=== PATIENT | female | born 1980 | race Caucasian/White ===

== ENCOUNTER 2017-11-01 10:26 | Emergency (ER) | payer OTHER ==
[2017-11-01 10:49] VITALS: BP 139/71; PULSE 86; TEMP 98.3; BMI 56.7
--- NOTE | 2017-11-01 12:12 | PDOC ---
History of Present Illness - General Chief Complaint: Pain, Acute Stated Complaint: NECK PAIN Time Seen by Provider: 11/01/17 11:56 - History of Present Illness Initial Comments: 37-year-old female without any medical comorbidities presents for evaluation of atraumatic right-sided neck pain 1 week. She describes her pain is achy and sharp at times exacerbated with motion and relieved with rest with radiation into her right shoulder. Denies any chance of . 11/01/17 12:08 Past History - Past Medical History Allergies/Adverse Reactions: Allergies Allergy/AdvReac Type Severity Reaction Status Date / Time No Known Allergies Allergy Verified 11/01/17 10:44 Home Medications: Ambulatory Orders Cyclobenzaprine HCl [Flexeril 10 mg] 10 mg PO HS PRN #10 tablet 11/01/17 Metformin HCl 500 mg PO BID 11/01/17 Vit 93/Iron Fum/Folic [ Formula Tablet] 1 each PO DAILY Anemia: No Asthma: No Cancer: No Cardiac Disorders: No COPD: No Diabetes: No HTN: No Hypercholesterolemia: Yes (diet controlled) Seizures: No Thyroid Disease: No - Suicide/Smoking/Psychosocial Hx Smoking Status: No Smoking History: Never smoked Have you smoked in the past 12 months: No Number of Cigarettes Smoked Daily: 0 Information on smoking cessation initiated: No Hx Alcohol Use: No Drug/Substance Use Hx: No Substance Use Type: None Hx Substance Use Treatment: No Review of Systems - Review of Systems Constitutional: No: Chills, Fever Musculoskeletal: Yes: Neck Pain All Other Systems: Reviewed and Negative *Physical Exam - Vital Signs Last Vital Signs Temp Pulse Resp BP Pulse Ox 98.3 F 86 18 139/71 100 11/01/17 10:46 11/01/17 10:46 11/01/17 10:46 11/01/17 10:46 11/01/17 10:46 - Physical Exam Comments: GENERAL: The patient is awake, alert, and fully oriented, in no acute distress. HEAD: Normal with no signs of trauma. ENT: Ears normal, nares patent, oropharynx clear without exudates. Moist mucous membranes. NECK: Skin color and temperature are normal. She has tenderness at the right sternocleidomastoid. There is no adenopathy. Mildly decreased range of motion with pain about the right sternocleidomastoid she has no gross sensorimotor deficits in bilateral upper extremities she has 5 out of 5 strength. Mildly positive Spurling maneuver on the right. Negative on the left. PSYCH: Normal mood, normal affect. SKIN: Warm, Dry, normal turgor, no rashes or lesions noted. 11/01/17 12:09 Medical Decision Making - Medical Decision Making His is most likely a cervical strain. In addition to the home mode Motrin she is taking I will give her Flexeril. Have her follow-up with her primary care doctor. 11/01/17 12:10 *DC/Admit/Observation/Transfer Diagnosis at time of Disposition: Cervical strain - Discharge Dispostion Disposition: HOME Condition at time of disposition: Stable Decision to Admit order: No - Referrals Referrals: Bridger Cronin MD [Primary Care Provider] - Celso Momin MD [Staff Physician] - - Patient Instructions Printed Discharge Instructions: DI for Cervical Muscle Strain Additional Instructions: This is most likely a cervical strain. In addition to the home Motrin you're taking her prescribed few Flexeril which is a muscle relaxer. It's one tablet before bedtime. In addition to primary care doctor should follow up with orthopedic surgery I recommended a spine surgeon in the area. Return to the emergency room if your symptoms worsen or go unresolved prior to follow-up. - Post Discharge Activity
== END 2017-11-01 12:26 | disposition home or self-care (01) ==
LOC: JERFT 10:26
DX: S16.1XXA Strain of muscle, fascia and tendon at neck level, initial encounter (principal); X58.XXXA Exposure to other specified factors, initial encounter; Y93.89 Activity, other specified; Y92.89 Other specified places as the place of occurrence of the external cause; Y99.8 Other external cause status
CPT/HCPCS: 99281-25

== ENCOUNTER 2018-07-18 21:45 | Emergency (ER) | payer OTHER ==
--- NOTE | 2018-07-18 21:58 | PDOC ---
Rapid Medical Evaluation Time Seen by Provider: 07/18/18 21:55 Medical Evaluation: Allergies Allergy/AdvReac Type Severity Reaction Status Date / Time No Known Allergies Allergy Verified 11/01/17 10:44 07/18/18 21:56 07/18/18 21:01 I performed a brief in-person evaluation of this patient. Chief complaint: 4 months with vomiting/diarrhea and lightheadedness, 1 episode of urinary incontinence, light bleeding and back pain x 3 days ago Pertinent physical exam findings: Able to ambulate independently, no acute distress I have ordered the following: CBC, CMP, T&S, UA/culture, u/s to assess well-being Patient to proceed to the ED for further evaluation Discharge Disposition - Diagnosis Second trimester , Vomiting and diarrhea - Referrals - Patient Instructions - Post Discharge Activity
[2018-07-18] MEDS ORDERED: SODIUM CHLORIDE 1,000 ML IV STA (21:59)
[2018-07-18 22:07] VITALS: BP 133/83; PULSE 87; TEMP 97.8; BMI 51.6
--- NOTE | 2018-07-18 22:23 | PDOC ---
History of Present Illness - General Chief Complaint: Vomiting/Diarrhea Stated Complaint: ROOM 2 Time Seen by Provider: 07/18/18 21:55 Past History - Past Medical History Allergies/Adverse Reactions: Allergies Allergy/AdvReac Type Severity Reaction Status Date / Time No Known Allergies Allergy Verified 11/01/17 10:44 Home Medications: Ambulatory Orders Cyclobenzaprine HCl [Flexeril 10 mg] 10 mg PO HS PRN #10 tablet 11/01/17 Vit 93/Iron Fum/Folic [ Formula Tablet] 1 each PO DAILY metFORMIN HCL [Metformin HCl] 500 mg PO BID 11/01/17 Anemia: No Asthma: No Cancer: No Cardiac Disorders: No COPD: No Diabetes: No HTN: No Hypercholesterolemia: Yes (diet controlled) Seizures: No Thyroid Disease: No - Suicide/Smoking/Psychosocial Hx Smoking Status: No Smoking History: Never smoked Have you smoked in the past 12 months: No Number of Cigarettes Smoked Daily: 0 Information on smoking cessation initiated: No Hx Alcohol Use: No Drug/Substance Use Hx: No Substance Use Type: None Hx Substance Use Treatment: No *Physical Exam - Vital Signs Last Vital Signs Temp Pulse Resp BP Pulse Ox 97.8 F 87 20 133/83 98 07/18/18 22:00 07/18/18 22:00 07/18/18 22:00 07/18/18 22:00 07/18/18 22:00 Moderate Sedation - Procedure Monitoring Vital Signs: Procedure Monitoring Vital Signs Temperature 97.8 F 07/18/18 22:00 Pulse Rate 87 07/18/18 22:00 Respiratory Rate 20 07/18/18 22:00 Blood Pressure 133/83 07/18/18 22:00 O2 Sat by Pulse Oximetry (%) 98 07/18/18 22:00 *DC/Admit/Observation/Transfer Diagnosis at time of Disposition: Second trimester , Vomiting and diarrhea - Referrals Referrals: Gallo Bhandari MD [Primary Care Provider] - - Patient Instructions - Post Discharge Activity
[2018-07-18 22:36] LABS: BASO % 0.9 % (0-2.0); EOS % 1.7 % (0-4.5); HEMATOCRIT 31.8 % (32.4-45.2); HEMOGLOBIN 11.2 GM/dL (10.7-15.3); LYMPH % 20.5 % (8-40); MCHC 35.3 g/dl (32.0-36.0); MEAN CELL VOLUME 79.3 fl (80-96); MEAN PLT VOLUME 8.5 fl (7.5-11.1); MONO % 5.9 % (3.8-10.2); PLATELET COUNT 203 K/MM3 (134-434); RBC 4.01 M/mm3 (3.60-5.2); RDW 16.3 % (11.6-15.6)
--- NOTE | 2018-07-18 22:54 | PDOC ---
History of Present Illness - General Chief Complaint: Vomiting/Diarrhea Stated Complaint: ROOM 2 Time Seen by Provider: 07/18/18 21:55 History Source: Patient - History of Present Illness Initial Comments: 07/18/18 22:55 The patient is a 37 year old female female at a self-reported 16 weeks gestation who presents to our ED c/o vaginal bleeding Patient states she went to the bathroom on Saturday and noticed a bright red spot of blood on her underwear and the toilet paper was pink when she wiped. No further noted bleeding. Denies any associated abdominal cramping, fevers/chills, dyuria/ repeated hematuria. 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 The patient denies chest pain, shortness of breath, numbness/tingling, headache , sore throat, cough, recent travel or sick contacts. NKDA Surgical: C/S x2 Social: denies toxic habits PMD: Dr. Elisabet Holder M.D. As per EMR, patient last evaluated in our ED on 11/01/2017 for neck pain likely 2/2 to cervical strain. Past History - Past Medical History Allergies/Adverse Reactions: Allergies Allergy/AdvReac Type Severity Reaction Status Date / Time No Known Allergies Allergy Verified 07/18/18 23:53 Home Medications: Ambulatory Orders Vit 93/Iron Fum/Folic [ Formula Tablet] 1 each PO DAILY metFORMIN HCL [Metformin HCl] 500 mg PO BID 11/01/17 Anemia: No Asthma: No Cancer: No Cardiac Disorders: No COPD: No Diabetes: No HTN: No Hypercholesterolemia: Yes (diet controlled) Seizures: No Thyroid Disease: No - Suicide/Smoking/Psychosocial Hx Smoking Status: No Smoking History: Never smoked Have you smoked in the past 12 months: No Number of Cigarettes Smoked Daily: 0 Information on smoking cessation initiated: No Hx Alcohol Use: No Drug/Substance Use Hx: No Substance Use Type: None Hx Substance Use Treatment: No Review of Systems - Review of Systems Constitutional: No: Chills, Fever HEENTM: No: Recent change in vision Respiratory: No: Cough, Shortness of Breath Cardiac (ROS): No: Chest Pain, Lightheadedness, Palpitations, Syncope ABD/GI: Yes: Nausea, Vomiting. No: Constipated, Diarrhea : Yes: Hematuria *Physical Exam - Vital Signs Last Vital Signs Temp Pulse Resp BP Pulse Ox 97.8 F 87 20 133/83 98 07/18/18 22:00 07/18/18 22:00 07/18/18 22:00 07/18/18 22:00 07/18/18 22:00 - Physical Exam General Appearance: Yes: Nourished, Appropriately Dressed HEENT: positive: Normal Voice, Hearing Grossly Normal Neck: positive: Trachea midline, Supple Respiratory/Chest: positive: Lungs Clear, Normal Breath Sounds Cardiovascular: positive: S1, S2. negative: Edema, JVD, Murmur Vascular Pulses: Dorsalis-Pedis (R): 2+, Doralis-Pedis (L): 2+ Gastrointestinal/Abdominal: positive: Normal Bowel Sounds, Soft Musculoskeletal: negative: CVA Tenderness (R), CVA Tenderness (L) Extremity: positive: Normal Capillary Refill, Normal Inspection Integumentary: positive: Normal Color, Dry, Warm Neurologic: positive: Fully Oriented, Alert Moderate Sedation - Procedure Monitoring Vital Signs: Procedure Monitoring Vital Signs Temperature 97.8 F 07/18/18 22:00 Pulse Rate 87 07/18/18 22:00 Respiratory Rate 20 07/18/18 22:00 Blood Pressure 133/83 07/18/18 22:00 O2 Sat by Pulse Oximetry (%) 98 07/18/18 22:00 ED Treatment Course - LABORATORY CBC & Chemistry Diagram: 07/18/18 22:23 07/18/18 22:23 - ADDITIONAL ORDERS Additional order review: 07/18/18 22:23 RBC 4.01 MCV 79.3 L MCHC 35.3 RDW 16.3 H MPV 8.5 Neutrophils % 71.0 Lymphocytes % 20.5 Monocytes % 5.9 Eosinophils % 1.7 Basophils % 0.9 Medical Decision Making - Medical Decision Making 07/18/18 23:27 37 year old female @ self-reported 16 weeks gestation presents to our ED w/one isolated episode of vaginal bleeding without abdominal cramping. VS unremarkable. Frontal diagnosis: SAB (including complete AB, incomplete AB, threatened AB), less likely ectopic (given h/o TVUS w/previous IUP) Previous Type and Screen indicated patient is AB positive, will not test for necessity of Rhogam administration. Will obtain TVUS, UA to evaluate for proteinuria, basic labs. Tylenol. Reassess. 07/18/18 23:55 TVUS shows IUP with FHR 148 UA clean Blood Type AB CBC, CMP unremarkable UA pending Patient reassessed @ bedside. VSS No repeat episodes of vaginal spotting. UA pending; likely disposition is discharge home. 07/18/18 23:56 UA shows no proteinuria, (-) leukocyte esterase Will discharge patient home with return precautions, OB follow-up for further evaluation should she experience additional episodes of vaginal bleeding. Clinical Impression: Threatened AB I discussed the physical exam findings, ancillary test results and final diagnoses with the patient. I answered all of the patient's questions. The patient was satisfied with the care received and felt comfortable with the discharge plan and treatment plan. The patient will return to the Emergency Department with any new, persistent or worsening symptoms. *DC/Admit/Observation/Transfer Diagnosis at time of Disposition: Second trimester , Hyperemesis gravidarum, Threatened - Discharge Dispostion Disposition: HOME Condition at time of disposition: Improved Decision to Admit order: No - Referrals Referrals: Gallo Bhandari MD [Primary Care Provider] - - Patient Instructions Printed Discharge Instructions: DI for Threatened , DI for Hyperemesis Gravidarum Additional Instructions: Your ultrasound is reassuring. Your fetus is 16 weeks and 1 day with a heart rate of 148, which is normal. Your blood work and urine work is normal. Please take 650 mg tylenol every 4 hours as needed for pain. This medication is safe for . If you have worsening pain or bleeding, please return to the ER. - Post Discharge Activity
[2018-07-18 23:02] LABS: ALBUMIN 3.2 g/dl (3.4-5.0); ALK PHOS 236 U/L (45-117); ANION GAP 6 MMOL/L (8-16); BILIRUBIN,TOTAL 0.6 mg/dL (0.2-1); BLOOD UREA NITROGEN 8 mg/dL (7-18); CALCIUM 8.5 mg/dL (8.5-10.1); CHLORIDE 105 mmol/L (98-107); CO2 26 mmol/L (21-32); CREATININE 0.5 mg/dL (0.55-1.3); GLUCOSE,RANDOM 85 mg/dL (74-106); POTASSIUM 4.3 mmol/L (3.5-5.1); SGOT/AST 74 U/L (15-37); SGPT/ALT 83 U/L (13-61); SODIUM 137 mmol/L (136-145); TOT PROT 7.2 g/dl (6.4-8.2)
[2018-07-18 23:16] LABS: URINE APPEARANCE CLEAR; URINE BILIRUBIN NEGATIVE (<2.0 mg/dL); URINE COLOR YELLOW; URINE GLUCOSE (UA) NEGATIVE (NEGATIVE); URINE KETONE NEGATIVE (NEGATIVE); URINE LEUK ESTERASE NEGATIVE (NEGATIVE); URINE NITRITE NEGATIVE (NEGATIVE); URINE PROTEIN NEGATIVE (NEGATIVE); URINE UROBILINOGEN NEGATIVE mg/dL (0.2-1.0)
[2018-07-18] MEDS ORDERED: ACETAMINOPHEN 1000 MG/100 ML VIAL (NON FORMULARY) IVPB ONE (23:19)
[2018-07-18] MEDS ORDERED: ACETAMINOPHEN INJECTION 100 ML IVPB ONE (23:23)
--- NOTE | 2018-07-18 23:44 | PDOC ---
Attending Attestation - Resident Resident Name: Annika Nelson - ED Attending Attestation I have performed the following: I have examined & evaluated the patient, The case was reviewed & discussed with the resident, I agree w/resident's findings & plan, Exceptions are as noted - Medical Decision Making 07/18/18 23:51 A portion of this note was documented by scribe services under my direction. I have reviewed the details of the note, within reason, and agree with the documentation with the following case summary and management plan written by me. Patient treated in the ED. Nursing notes are reviewed and incorporated into the medical decision-making. Vital signs reviewed. Peripheral IV access obtained by the nurse, laboratory studies are drawn and sent, reviewed and interpreted by myself. Vital Signs Temp Pulse Resp BP Pulse Ox 97.8 F 87 20 133/83 98 07/18/18 22:00 07/18/18 22:00 07/18/18 22:00 07/18/18 22:00 07/18/18 22:00 37-year-old female patient , approximately 16 weeks presents with nausea vomiting. Patient reported several weeks of nausea vomiting likely secondary to hyperemesis gravidarum. She reported she has medications at home. However, denies any fevers or chills. Patient also had some vaginal spotting several days ago but that resolved. Denies any vaginal bleeding or abdominal pain now. Pelvic ultrasound demonstrates a fetus of 16 weeks 1 day and a reassuring heart rate on 148 bpm. Blood type is AB+. Labs are unremarkable. I suspect patient likely had threatened . However, the patient feels reassured and is normal bleeding. Return precautions given. Patient feels comfortable going home. I discussed the physical exam findings, ancillary test results and final diagnoses with the patient. I answered all of the patient's questions. The patient was satisfied with the care received and felt comfortable with the discharge plan and treatment plan. The patient will call their primary care physician within 24 hours to arrange follow-up and will return to the Emergency Department with any new, persistant or worsening symptoms. <Niko Rosa - Last Filed: 07/18/18 23:44> - HPI HPI: The patient is a 37 year old female (self-reported 16 weeks gestation), with a significant PMH of hypercholesterolemia, who presents to the emergency department today complaining of vaginal bleeding (one instance 2 days ago) and nausea/vomiting for a few weeks. Patient notes that 2 days ago, she went to urinate and saw that her underwear was stained with bright red blood. Upon wiping, the toilet paper was lightly stained with blood as well. This instance only occurred once, and she has not experienced any vaginal bleeding since. Patient also notes she has been vomiting NBNB twice a day since her has begun. Patient is asymptomatic at this time, and is concerned about the single episode of vaginal spotting. OBGYN appointment was two weeks ago, and everything was normal. The patient denies chest pain, shortness of breath, headache and dizziness. Denies fever, chills, nausea, vomit, diarrhea and constipation. Denies dysuria, frequency, urgency and hematuria. Allergies: NKA Past surgical history: Social history: No reported PCP: Dr. Gallo Bhandari OBGYN: Not on Staff 07/19/18 00:15 - Physicial Exam PE: GENERAL: Awake, alert, and fully oriented, in no acute distress HEAD: No signs of trauma EYES: PERRLA, EOMI, sclera anicteric, conjunctiva clear ENT: Auricles normal inspection, hearing grossly normal, nares patent. Moist mucosa NECK: Normal ROM, supple, no masses ABDOMEN: Soft, nontender. No guarding, no rebound. No masses EXTREMITIES: Normal range of motion, no edema. No clubbing or cyanosis. No cords, erythema, or tenderness NEUROLOGICAL: Cranial nerves II through XII grossly intact. Normal speech. SKIN: Warm, Dry, normal turgor, no rashes or lesions noted. 07/19/18 00:15 - Medical Decision Making Documentation prepared by DENISA Russell, acting as medical records tech for Niko Rosa MD. 07/19/18 00:15 <Shalonda Connor - Last Filed: 07/19/18 00:15> *DC/Admit/Observation/Transfer <Niko Rosa - Last Filed: 07/18/18 23:44> <Shalonda Connor - Last Filed: 07/19/18 00:15> Diagnosis at time of Disposition: Second trimester , Hyperemesis gravidarum, Threatened - Discharge Dispostion Disposition: HOME Condition at time of disposition: Improved - Referrals Referrals: Gallo Bhandari MD [Primary Care Provider] - - Patient Instructions Printed Discharge Instructions: DI for Threatened , DI for Hyperemesis Gravidarum Additional Instructions: Your ultrasound is reassuring. Your fetus is 16 weeks and 1 day with a heart rate of 148, which is normal. Your blood work and urine work is normal. Please take 650 mg tylenol every 4 hours as needed for pain. This medication is safe for . If you have worsening pain or bleeding, please return to the ER. - Post Discharge Activity
== END 2018-07-18 23:55 | disposition home or self-care (01) ==
LOC: JER 21:45
PROC: 3E0337Z Introduction of Electrolytic and Water Balance Substance into Peripheral Vein, Percutaneous Approach (ICD-10-PCS; principal; 2018-07-18)
PROC: 3E033NZ Introduction of Analgesics, Hypnotics, Sedatives into Peripheral Vein, Percutaneous Approach (ICD-10-PCS; 2018-07-18)
DX: O26.892 Other specified pregnancy related conditions, second trimester (principal); O20.0 Threatened abortion; O21.0 Mild hyperemesis gravidarum; Z3A.16 16 weeks gestation of pregnancy
CPT/HCPCS: 36415; 76815-TC; 80053; 81003; 85025; 86850; 86900; 86901; 87086; 96361; 96374; 99281-25; J0131; J7030

== ENCOUNTER 2020-08-04 17:32 | Emergency (ER) | payer OTHER ==
[2020-08-04 17:47] VITALS: BMI 50.0
[2020-08-04] MEDS ORDERED: MAG HYDROX/AL HYDROX/SIMETH -MYLANTA- ORAL SUSPENSION PO ONE (20:00)
[2020-08-04] MEDS ORDERED: FAMOTIDINE 20 MG/50 ML IVPB 20 MG in PREMIX 50 IVPB ONE (20:00)
[2020-08-04] MEDS ORDERED: ONDANSETRON 4 MG/2 ML VIAL IVPB ONE (20:00)
[2020-08-04] MEDS ORDERED: SODIUM CHLORIDE 1,000 ML IV ONE (20:02)
[2020-08-04] MEDS ORDERED: MAG HYDROX/AL HYDROX/SIMETH 30 ML UNIT-DOSE CUP ONE (20:30)
[2020-08-04] MEDS ORDERED: ONDANSETRON 4 MG/2 ML VIAL ONE (20:30)
[2020-08-04] MEDS ORDERED: FAMOTIDINE 20 MG/50 ML IVPB 20 MG/50 ML MG IVPB ONE (20:31)
[2020-08-04 21:36] LABS: EPI CELLS 16 /uL (0-25.1); HYALINE CASTS 1 /uL (0-3.1); URINE APPEARANCE CLEAR; URINE BACTERIA 419 /uL (0-1359); URINE BILIRUBIN NEGATIVE (NEGATIVE); URINE COLOR YELLOW; URINE GLUCOSE (UA) NEGATIVE (NEGATIVE); URINE KETONE NEGATIVE (NEGATIVE); URINE LEUK ESTERASE 1+ (NEGATIVE); URINE NITRITE NEGATIVE (NEGATIVE); URINE PROTEIN 1+ (NEGATIVE); URINE RBC 10 /uL (0-23.9); URINE UROBILINOGEN 0.2 mg/dL (0.2-1.0); URINE WBC 41 /uL (0-25.8)
[2020-08-04 21:44] LABS: EOS % 1.7 % (0-4.5); LYMPH % 22.3 % (8-40); MCHC 34.2 g/dl (32.0-36.0); MEAN CELL VOLUME 76.1 fl (80-96); MEAN PLT VOLUME 8.6 fl (7.5-11.1); MONO % 4.8 % (3.8-10.2); NEUT % 70.2 % (42.8-82.8); PLATELET COUNT 245 K/MM3 (134-434); RBC 4.99 M/mm3 (3.60-5.2); RDW 16.5 % (11.6-15.6); WHITE BLOOD COUNT 5.4 K/mm3 (4.0-10.0)
[2020-08-04 22:04] LABS: POTASSIUM 3.8 mmol/L (3.5-5.1)
[2020-08-04 22:08] LABS: CALCIUM 9.4 mg/dL (8.5-10.1)
[2020-08-04 22:11] LABS: CREATININE 0.8 mg/dL (0.55-1.3)
[2020-08-04 22:13] LABS: BILIRUBIN,TOTAL 0.7 mg/dL (0.2-1); TOT PROT 8.4 g/dl (6.4-8.2)
[2020-08-04 23:01] VITALS: BP 131/76; PULSE 82; TEMP 98
== END 2020-08-04 23:01 | disposition home or self-care (01) ==
LOC: JER 17:32
PROC: 3E033GC Introduction of Other Therapeutic Substance into Peripheral Vein, Percutaneous Approach (ICD-10-PCS; principal; 2020-08-04)
PROC: 3E033GC Introduction of Other Therapeutic Substance into Peripheral Vein, Percutaneous Approach (ICD-10-PCS; 2020-08-04)
PROC: 3E0337Z Introduction of Electrolytic and Water Balance Substance into Peripheral Vein, Percutaneous Approach (ICD-10-PCS; 2020-08-04)
DX: R14.0 Abdominal distension (gaseous) (principal); K29.00 Acute gastritis without bleeding
CPT/HCPCS: 36415; 80053; 81003; 83690; 84703; 85025; 99284-25

== ENCOUNTER 2020-12-14 10:50 | Day surgery (SDC) | payer OTHER ==
[2020-12-12 14:22] VITALS: BMI 49.4
[2020-12-14] MEDS ORDERED: ONDANSETRON 4 MG/2 ML VIAL ONE (12:48)
[2020-12-14] MEDS ORDERED: MIDAZOLAM HCL 2 MG/2 ML SINGLE DOSE VIAL ONE (12:48)
[2020-12-14 13:24] VITALS: TEMP 98.6
[2020-12-14 13:35] VITALS: BP 116/67; PULSE 86
== END 2020-12-14 13:50 | disposition home or self-care (01) ==
LOC: FASU-ENDO 10:50
PROVIDERS: ATTEND Internal Medicine Gastroenterology
PROC: 0DB68ZX Excision of Stomach, Via Natural or Artificial Opening Endoscopic, Diagnostic (ICD-10-PCS; 2020-12-14)
PROC: 0DB48ZX Excision of Esophagogastric Junction, Via Natural or Artificial Opening Endoscopic, Diagnostic (ICD-10-PCS; 2020-12-14)
PROC: 0DB98ZX Excision of Duodenum, Via Natural or Artificial Opening Endoscopic, Diagnostic (ICD-10-PCS; principal; 2020-12-14 12:54)
DX: K29.50 Unspecified chronic gastritis without bleeding (principal); K20.90 Esophagitis, unspecified without bleeding; B96.81 Helicobacter pylori [H. pylori] as the cause of diseases classified elsewhere; R10.13 Epigastric pain
CPT/HCPCS: 84703

== ENCOUNTER 2021-03-18 22:49 | Emergency (ER) | payer OTHER ==
[2021-03-18 23:00] VITALS: BP 125/84; PULSE 96; TEMP 97.9; BMI 50.1
[2021-03-18] MEDS ORDERED: MAG HYDROX/AL HYDROX/SIMETH 30 ML UNIT-DOSE CUP PO ONE (23:52)
[2021-03-18] MEDS ORDERED: FAMOTIDINE 20 MG TABLET PO ONE (23:52)
[2021-03-18] MEDS ORDERED: CYCLOBENZAPRINE HCL 10 MG TABLET (FP) PO ONE (23:54)
[2021-03-18] MEDS ORDERED: CYCLOBENZAPRINE HCL 10 MG TABLET (FP) ONE (23:55)
[2021-03-18] MEDS ORDERED: MAG HYDROX/AL HYDROX/SIMETH 30 ML UNIT-DOSE CUP ONE (23:56)
[2021-03-18] MEDS ORDERED: FAMOTIDINE 20 MG TABLET ONE (23:56)
== END 2021-03-19 02:07 | disposition home or self-care (01) ==
LOC: JER 22:49
DX: K29.50 Unspecified chronic gastritis without bleeding (principal)
CPT/HCPCS: 93005; 93010; 99283-25

== ENCOUNTER 2021-03-24 01:25 | Emergency (ER) | payer OTHER ==
[2021-03-24 02:06] VITALS: BP 116/73; PULSE 90; TEMP 97.6; BMI 51.6
[2021-03-24] MEDS ORDERED: CYCLOBENZAPRINE HCL 10 MG TABLET (FP) PO ONE (02:56)
[2021-03-24] MEDS ORDERED: CYCLOBENZAPRINE HCL 10 MG TABLET (FP) ONE (03:59)
== END 2021-03-24 04:05 | disposition home or self-care (01) ==
LOC: JER 01:25
DX: M54.2 Cervicalgia (principal)
CPT/HCPCS: 99283-25

== ENCOUNTER 2022-05-19 22:49 | Emergency (ER) | payer OTHER ==
[2022-05-19 23:01] VITALS: BMI 52.1
[2022-05-20] MEDS ORDERED: ACETAMINOPHEN 1000 MG/100 ML BAG IVPB ONE (02:01)
[2022-05-20] MEDS ORDERED: FAMOTIDINE 20 MG/50 ML IVPB 20 MG/50 ML MG IVPB ONE ×2 (02:01→02:26)
[2022-05-20] MEDS ORDERED: MAG HYDROX/AL HYDROX/SIMETH 30 ML UNIT-DOSE CUP PO ONE (02:01)
[2022-05-20] MEDS ORDERED: MAG HYDROX/AL HYDROX/SIMETH 30 ML UNIT-DOSE CUP ONE (02:26)
[2022-05-20] MEDS ORDERED: ACETAMINOPHEN INJECTION 100 ML IVPB ONE (02:26)
[2022-05-20 02:40] LABS: EOS % 1.7 % (0-4.5); HEMATOCRIT 35.6 % (32.4-45.2); LYMPH % 21.3 % (8-40); MCH 25.5 pg (25.7-33.7); MCHC 33.7 g/dl (32.0-36.0); MEAN CELL VOLUME 75.6 fl (80-96); MEAN PLT VOLUME 8.3 fl (7.5-11.1); MONO % 6.1 % (3.8-10.2); NEUT % 69.9 % (42.8-82.8); PLATELET COUNT 234 10^3/uL (134-434); RBC 4.71 M/mm3 (3.60-5.2); RDW 16.5 % (11.6-15.6); WHITE BLOOD COUNT 5.7 K/mm3 (4.0-10.0)
[2022-05-20 03:02] LABS: CALCIUM 9.2 mg/dL (8.5-10.1)
[2022-05-20 03:03] LABS: ALBUMIN 3.4 g/dl (3.4-5.0)
[2022-05-20 03:05] LABS: CREATININE 0.6 mg/dL (0.55-1.3)
[2022-05-20 03:07] LABS: TOT PROT 7.9 g/dl (6.4-8.2)
[2022-05-20 03:08] LABS: BILIRUBIN,TOTAL 0.4 mg/dL (0.2-1)
[2022-05-20 03:20] LABS: INR 1.07 (0.83-1.09); PROTHROMBIN TIME (PATIENT) 12.3 SEC (9.7-13.0)
[2022-05-20 03:23] LABS: ACTIVATED PTT 32.3 SECONDS (25.2-36.5)
[2022-05-20 04:16] VITALS: BP 128/77; PULSE 68; RESP 16; TEMP 97.7
== END 2022-05-20 05:33 | disposition home or self-care (01) ==
LOC: JER 22:49
PROC: 3E033GC Introduction of Other Therapeutic Substance into Peripheral Vein, Percutaneous Approach (ICD-10-PCS; principal; 2022-05-19)
DX: R07.9 Chest pain, unspecified (principal)
CPT/HCPCS: 0241U-QW; 36415; 71045-TC-FY; 80053; 83690; 84484; 85025; 85379; 85610; 85730; 93005; 93010; 99285-25

== ENCOUNTER 2022-08-30 12:17 | Emergency (ER) | payer OTHER ==
[2022-08-30 12:32] VITALS: BP 156/89; PULSE 100; RESP 18; TEMP 98.2; BMI 52.4
[2022-08-30] MEDS ORDERED: ACETAMINOPHEN 1000 MG/100 ML BAG IVPB ONE (13:18)
[2022-08-30] MEDS ORDERED: FAMOTIDINE 20 MG/50 ML IVPB 20 MG/50 ML MG IVPB ONE ×2 (13:18→13:37)
[2022-08-30] MEDS ORDERED: ACETAMINOPHEN INJECTION 100 ML IVPB ONE (13:37)
[2022-08-30 13:58] LABS: EOS % 2.1 % (0-4.5); HEMATOCRIT 35.8 % (32.4-45.2); HEMOGLOBIN 12.4 GM/dL (10.7-15.3); LYMPH % 20.2 % (8-40); MCH 25.6 pg (25.7-33.7); MCHC 34.5 g/dl (32.0-36.0); MEAN CELL VOLUME 74.3 fl (80-96); MEAN PLT VOLUME 8.5 fl (7.5-11.1); MONO % 6.3 % (3.8-10.2); NEUT % 70.4 % (42.8-82.8); PLATELET COUNT 226 10^3/uL (134-434); RBC 4.82 M/mm3 (3.60-5.2); WHITE BLOOD COUNT 4.6 K/mm3 (4.0-10.0)
[2022-08-30 14:14] LABS: ACTIVATED PTT 33.5 SECONDS (25.2-36.5); INR 1.03 (0.83-1.09)
[2022-08-30 14:17] LABS: ALBUMIN 3.7 g/dl (3.4-5.0)
[2022-08-30 14:18] LABS: BLOOD UREA NITROGEN 9.1 mg/dL (7-18)
[2022-08-30 14:20] LABS: CREATININE 0.6 mg/dL (0.55-1.3)
[2022-08-30 14:22] LABS: BILIRUBIN,TOTAL 0.5 mg/dL (0.2-1); TOT PROT 8.1 g/dl (6.4-8.2)
== END 2022-08-30 22:25 | disposition home or self-care (01) ==
LOC: JER 12:17
PROC: 3E033GC Introduction of Other Therapeutic Substance into Peripheral Vein, Percutaneous Approach (ICD-10-PCS; principal; 2022-08-30)
PROC: 3E033NZ Introduction of Analgesics, Hypnotics, Sedatives into Peripheral Vein, Percutaneous Approach (ICD-10-PCS; 2022-08-30)
DX: R07.9 Chest pain, unspecified (principal); R68.83 Chills (without fever); R61 Generalized hyperhidrosis; R10.13 Epigastric pain; R00.2 Palpitations; M54.6 Pain in thoracic spine; K59.00 Constipation, unspecified
CPT/HCPCS: 36415; 71046-TC-FY; 71275-TC; 80053; 84484; 84703; 85025; 85379; 85610; 85730; 93005; 93010; 99285-25; Q9967

== ENCOUNTER 2024-05-29 16:10 | Emergency (ER) | payer OTHER ==
[2024-05-29 16:44] VITALS: BP 124/78; PULSE 100; RESP 18; TEMP 98.1; BMI 53.2
[2024-05-29] MEDS ORDERED: ONDANSETRON 4 MG/2 ML VIAL ONE (18:21)
[2024-05-29] MEDS: SODIUM CHLORIDE 0.9% 500 ML INFUS.BAG IV ONE (18:45)
[2024-05-29] MEDS: ONDANSETRON 4 MG/2 ML VIAL IVPUSH ONE (18:46)
[2024-05-29 19:00] LABS: BASO % 0.9 % (0-2.0); EOS % 2.4 % (0-4.5); HEMATOCRIT 35.8 % (32.4-45.2); LYMPH % 19.2 % (8-40); MCH 26.1 pg (25.7-33.7); MCHC 33.7 g/dl (32.0-36.0); MEAN CELL VOLUME 77.5 fl (80-96); MEAN PLT VOLUME 8.6 fl (7.5-11.1); MONO % 6.6 % (3.8-10.2); NEUT % 70.9 % (42.8-82.8); PLATELET COUNT 226 10^3/uL (134-434); RBC 4.61 M/mm3 (3.60-5.2); RDW 16.5 % (11.6-15.6); WHITE BLOOD COUNT 6.1 K/mm3 (4.0-10.0)
[2024-05-29 19:08] LABS: POTASSIUM 4.3 mmol/L (3.5-5.1)
[2024-05-29 19:10] LABS: CALCIUM 9.3 mg/dL (8.5-10.1)
[2024-05-29 19:11] LABS: ALBUMIN 3.6 g/dl (3.4-5.0); BLOOD UREA NITROGEN 11.9 mg/dL (7-18)
[2024-05-29 19:14] LABS: CREATININE 0.7 mg/dL (0.55-1.3)
[2024-05-29 19:15] LABS: BILIRUBIN,TOTAL 0.6 mg/dL (0.2-1)
[2024-05-29 19:16] LABS: TOT PROT 7.7 g/dl (6.4-8.2)
== END 2024-05-29 20:57 | disposition home or self-care (01) ==
LOC: JER 16:10
PROC: 3E033GC Introduction of Other Therapeutic Substance into Peripheral Vein, Percutaneous Approach (ICD-10-PCS; principal; 2024-05-29)
DX: R11.2 Nausea with vomiting, unspecified (principal); R53.83 Other fatigue; R42 Dizziness and giddiness
CPT/HCPCS: 36415; 80053; 83690; 85025; 99284-25